=== PATIENT | male | born 1970 | race Two or more races ===

== ENCOUNTER 2022-12-31 17:59 | Inpatient (IN) | payer MEDICAID, OTHER ==
[~2022-12-31] VITALS: Ht 167.6 cm; Wt 120.6 kg
[2022-12-31 18:46] LABS: Basophils # (auto) 0.1 10 ^3/uL (0-0.2); Basophils % (auto) 0.9 % (0.0-2.0); Eosinophils # (auto) 0.1 10 ^3/uL (0-0.8); Monocytes # (auto) 1.2 10 ^3/uL (0-1.3); White Blood Cell 11.6 10^3/uL (4.4-10.8)
[2022-12-31 18:48] LABS: Eosinophils % (auto) 0.9 % (0.0-7.0); Hematocrit 41.3 % (41.0-53.0); Hemoglobin 14.2 g/dL (13.5-17.5); Lymphocytes # (auto) 1.1 10 ^3/uL (0.4-5.4); Lymphocytes % (auto) 9.6 % (10.0-50.0); Mean Corpuscular Hemoglobin 35.2 pg (28.0-32.0); Mean Corpuscular Hgb Conc. 34.4 g/dL (32.0-36.0); Mean Corpuscular Volume 102.5 fL (80.0-100.0); Monocytes % (auto) 10.2 % (0.0-12.0); Neutrophils # (auto) 9.1 10 ^3/uL (1.6-8.6); Neutrophils % (auto) 78.4 % (37.0-80.0); Nucleated Red Blood Cells % 0.1 %; Red Blood Cells 4.03 10^6/uL (4.5-5.90); Red Cell Distribution Width 16.8 % (11.8-14.3)
[2022-12-31 19:01] LABS: Albumin 2.2 g/dL (3.4-5.0); Calcium 7.8 mg/dL (8.5-10.1); Potassium 4.2 mmol/L (3.5-5.1)
[2022-12-31 19:05] LABS: BUN/Creatinine Ratio 19.3 (10.0-20.0); Bilirubin, Total 7.6 mg/dL (0.2-1.0); Total Protein 6.6 g/dL (6.4-8.2)
[2022-12-31 19:21] LABS: INR 1.83 (0.9-1.15); Partial Thromboplastin Time 36.2 SEC (24.5-34.5)
[2022-12-31] MEDS ORDERED: KETOROLAC TROMETH 60MG/2ML VIAL IM ONE (19:45)
[2022-12-31] MEDS ORDERED: HYDROcodone-ACET 5/325MG TAB PO ONE (19:45)
[2022-12-31] MEDS ORDERED: LACTULOSE 20Gm/30ML SOLN PO ONE (23:00)
[2022-12-31] MEDS: CALCIUM GLUC 1,000mg/50ml-NS 50 ML IV SCH ×2 (23:00→23:30)
[2022-12-31] MEDS: SODIUM CHLORIDE 0.9% 1,000 ML IV ONE (23:00)
[2023-01-01] MEDS ORDERED: HYDROcodone-ACET 5/325MG TAB PO ONE (07:00)
[2023-01-01] MEDS ORDERED: KETOROLAC TROMETH 60MG/2ML VIAL IM ONE (07:00)
[2023-01-01] MEDS ORDERED: LACTULOSE 20Gm/30ML SOLN PO ONE (07:00)
[2023-01-01] MEDS ORDERED: SODIUM CHLORIDE 0.9% 1,000 ML IV ONE (07:00)
[2023-01-01] MEDS: CALCIUM GLUC 1,000mg/50ml-NS 50 ML IV SCH ×2 (07:08→07:46)
[2023-01-01] MEDS ORDERED: MORPHINE SULFATE INJ 2 MG/ml SYRG IV PRN (12:00)
[2023-01-01] MEDS ORDERED: NITROGLYCERIN 0.4 MG SL TAB SL PRN (12:00)
[2023-01-01] MEDS ORDERED: LORazepam 2MG/ML-1ML VIAL IV PRN (13:00)
[2023-01-01] MEDS: FOLIC ACID 1 MG, MULTIPLE VITAMIN 10 ML, MAGNESIUM SULF SDV 50% 8 MEQ, THIAMINE INJ 100... INJ SCH ×5 (13:55)
[2023-01-01] MEDS: LACTATED RINGER'S 1,000 ML IV SCH ×2 (14:30→21:15)
[2023-01-01] MEDS ORDERED: HYDROmorphone HCL 2 MG/ML VL/or syr IV PRN (16:15)
[2023-01-01] MEDS ORDERED: ONDANSETRON HCL 4 MG/2 ML VIAL IV PRN (16:15)
[2023-01-01] MEDS: metroNIDAZOLE 500MG/100ML 100 ML IV SCH (22:46)
[2023-01-02] MEDS: LACTATED RINGER'S 1,000 ML IV SCH ×2 (03:50→10:40)
[2023-01-02] MEDS: metroNIDAZOLE 500MG/100ML 100 ML IV SCH ×3 (05:37→22:42)
[2023-01-02 05:50] LABS: Eosinophils # (auto) 0.2 10 ^3/uL (0-0.8); Hemoglobin 14.3 g/dL (13.5-17.5); Lymphocytes # (auto) 1.3 10 ^3/uL (0.4-5.4); Mean Corpuscular Hemoglobin 35.5 pg (28.0-32.0); Nucleated Red Blood Cells % 0.1 %; Red Blood Cells 4.03 10^6/uL (4.5-5.90)
[2023-01-02 05:52] LABS: Basophils # (auto) 0.1 10 ^3/uL (0-0.2); Basophils % (auto) 0.7 % (0.0-2.0); Eosinophils % (auto) 1.5 % (0.0-7.0); Lymphocytes % (auto) 11.8 % (10.0-50.0); Mean Corpuscular Volume 104.2 fL (80.0-100.0); Neutrophils # (auto) 8.6 10 ^3/uL (1.6-8.6); Red Cell Distribution Width 16.3 % (11.8-14.3); White Blood Cell 11.2 10^3/uL (4.4-10.8)
[2023-01-02 06:04] LABS: Calcium 8.2 mg/dL (8.5-10.1); Potassium 4.8 mmol/L (3.5-5.1)
[2023-01-02 06:08] LABS: BUN/Creatinine Ratio 27.8 (10.0-20.0); Total Protein 6.3 g/dL (6.4-8.2)
[2023-01-02] MEDS: cefTRIAXone 1GM/50ML D5W 50 ML IV SCH (09:51)
[2023-01-02] MEDS: SPIRONOLACTONE 25 MG TAB PO SCH (09:56)
[2023-01-02] MEDS: FUROSEMIDE 20 MG/2 ML VIAL IV SCH (09:57)
[2023-01-02] MEDS: LACTULOSE 20Gm/30ML SOLN PO SCH (09:57)
[2023-01-02] MEDS: PANTOPRAZOLE 40 MG/10 ML VIAL INJ IV SCH (09:57)
[2023-01-02] MEDS: FOLIC ACID 1 MG, MULTIPLE VITAMIN 10 ML, MAGNESIUM SULF SDV 50% 8 MEQ, THIAMINE INJ 100... INJ SCH ×5 (12:52)
[2023-01-02] MEDS ORDERED: LACTATED RINGER'S 1,000 ML IV SCH (13:45)
[2023-01-02 17:00] VITALS: BP 121/64
[2023-01-02 17:12] VITALS: BP 121/64
[2023-01-02 20:00] VITALS: BP 128/70
[2023-01-02 22:00] VITALS: BP 128/70
[2023-01-03 05:07] VITALS: BP 119/67
[2023-01-03 06:17] LABS: Potassium 4.4 mmol/L (3.5-5.1)
[2023-01-03 06:23] LABS: Hematocrit 39.1 % (41.0-53.0); Hemoglobin 13.5 g/dL (13.5-17.5); Mean Corpuscular Hgb Conc. 34.6 g/dL (32.0-36.0)
[2023-01-03 06:26] LABS: Basophils # (auto) 0.1 10 ^3/uL (0-0.2); Basophils % (auto) 0.7 % (0.0-2.0); Eosinophils # (auto) 0.1 10 ^3/uL (0-0.8); Eosinophils % (auto) 1.5 % (0.0-7.0); Lymphocytes # (auto) 1.1 10 ^3/uL (0.4-5.4); Lymphocytes % (auto) 12.7 % (10.0-50.0); Mean Corpuscular Volume 103.9 fL (80.0-100.0); Monocytes # (auto) 0.9 10 ^3/uL (0-1.3); Monocytes % (auto) 9.8 % (0.0-12.0); Neutrophils # (auto) 6.8 10 ^3/uL (1.6-8.6); Neutrophils % (auto) 75.3 % (37.0-80.0); Red Blood Cells 3.76 10^6/uL (4.5-5.90); Red Cell Distribution Width 16.5 % (11.8-14.3); White Blood Cell 9.1 10^3/uL (4.4-10.8)
[2023-01-03] MEDS: metroNIDAZOLE 500MG/100ML 100 ML IV SCH ×2 (06:26→14:25)
[2023-01-03 06:32] LABS: Albumin 1.8 g/dL (3.4-5.0); BUN/Creatinine Ratio 33.3 (10.0-20.0); Bilirubin, Total 7.8 mg/dL (0.2-1.0); Total Protein 5.7 g/dL (6.4-8.2)
[2023-01-03 08:00] VITALS: BP 124/61
[2023-01-03] MEDS: PANTOPRAZOLE 40 MG/10 ML VIAL INJ IV SCH (08:36)
[2023-01-03] MEDS: LACTULOSE 20Gm/30ML SOLN PO SCH (08:37)
[2023-01-03] MEDS: FUROSEMIDE 20 MG/2 ML VIAL IV SCH (08:37)
[2023-01-03] MEDS: SPIRONOLACTONE 25 MG TAB PO SCH (08:37)
[2023-01-03] MEDS: cefTRIAXone 1GM/50ML D5W 50 ML IV SCH (08:37)
[2023-01-03 09:00] VITALS: BP 124/61
[2023-01-03] MEDS ORDERED: methylPREDNISolone SOD SUCC 40 MG/ML VL IV SCH (10:00)
[2023-01-03 13:00] VITALS: BP 139/73
[2023-01-03 13:00] LABS: Hepatitis A Ab IgM Negative
[2023-01-03 13:01] LABS: Hepatitis B Core IgM Negative; Hepatitis C Antibody Negative (Negative)
[2023-01-03 13:08] LABS: Hepatitis C Antibody Negative (Negative)
== END 2023-01-03 15:50 | disposition home or self-care (01) | DRG 282 ==
LOC: ER 17:59 → TELE 01-01 11:57 → TELE-EAST 01-02 17:12
PROVIDERS: ADMIT Nurse Practitioner Acute Care; ATTEND Nurse Practitioner Acute Care
PROC: 0W9G3ZZ Drainage of Peritoneal Cavity, Percutaneous Approach (ICD-10-PCS; principal; 2023-01-02)
DX: K85.20 Alcohol induced acute pancreatitis without necrosis or infection (principal); E43 Unspecified severe protein-calorie malnutrition; K70.31 Alcoholic cirrhosis of liver with ascites; D69.6 Thrombocytopenia, unspecified; E83.51 Hypocalcemia; K76.6 Portal hypertension; D63.8 Anemia in other chronic diseases classified elsewhere; R74.01 Elevation of levels of liver transaminase levels; F10.20 Alcohol dependence, uncomplicated; N39.0 Urinary tract infection, site not specified; E87.1 Hypo-osmolality and hyponatremia; E66.01 Morbid (severe) obesity due to excess calories; Z68.41 Body mass index [BMI] 40.0-44.9, adult; R65.10 Systemic inflammatory response syndrome (SIRS) of non-infectious origin without acute organ dysfunction
CPT/HCPCS: 36415; 71045; 74176; 76705; 76942; 80053; 80061; 80074; 82105; 82140; 83690; 83880; 84484; 85025; 85610; 85730; 86803; 87040; 87205; 87340; 93005; C9113; G0378; J0696; J1885; J3490

== ENCOUNTER 2023-01-29 16:26 | Inpatient (IN) | payer MEDICAID ==
[~2023-01-29] VITALS: Ht 167.6 cm; Wt 110.0 kg
[2023-01-29 18:02] VITALS: PULSE 94; RESP 31; O2SAT 94
[2023-01-29 18:05] LABS: Red Cell Distribution Width 15.5 % (11.8-14.3)
[2023-01-29 18:06] LABS: Hematocrit 43.5 % (41.0-53.0); Hemoglobin 14.8 g/dL (13.5-17.5); Mean Corpuscular Hemoglobin 36.4 pg (28.0-32.0); Mean Corpuscular Volume 106.8 fL (80.0-100.0); Red Blood Cells 4.07 10^6/uL (4.5-5.90); White Blood Cell 15.2 10^3/uL (4.4-10.8)
[2023-01-29 18:20] LABS: Basophils % (manual) 0 (0.0-2.0); Blast Cells 0; Eosinophils % (manual) 0 (0-7); Metamyelocytes % 0; Myelocytes % 0; Promyelocytes % 0; Reactive Lymphocytes 0
[2023-01-29 18:39] LABS: Albumin 1.9 g/dL (3.4-5.0); Calcium 8.2 mg/dL (8.5-10.1)
[2023-01-29 18:43] LABS: BUN/Creatinine Ratio 20.9 (10.0-20.0); Bilirubin, Total 9.9 mg/dL (0.2-1.0); Total Protein 6.2 g/dL (6.4-8.2)
[2023-01-29 19:20] LABS: Potassium 5.8 mmol/L (3.5-5.1)
[2023-01-29 20:15] VITALS: PULSE 98; RESP 36; O2SAT 92
[2023-01-29 20:56] LABS: Band Neutrophils % (manual) 15; Lymphocytes % (manual) 1 (10.0-50.0); Monocytes % (manual) 4 (0-12)
[2023-01-29 20:57] LABS: Platelet Estimate Adequate
[2023-01-29 20:58] LABS: Anisocytosis Slight
[2023-01-29] MEDS ORDERED: ALBUMIN 25% 100 ML IV ONE (21:30)
[2023-01-29] MEDS ORDERED: SODIUM ZIRCONIUM CYCL 10 GM PAK PO ONE (21:30)
[2023-01-29] MEDS ORDERED: FUROSEMIDE 40 MG/4 ML VIAL IV ONE (21:30)
[2023-01-29] MEDS ORDERED: ONDANSETRON HCL 4 MG/2 ML VIAL IV PRN (21:30)
[2023-01-29] MEDS ORDERED: MORPHINE SULFATE INJ 2 MG/ml SYRG IV PRN (21:30)
[2023-01-29] MEDS ORDERED: NITROGLYCERIN 0.4 MG SL TAB SL PRN (21:30)
[2023-01-29] MEDS: LACTULOSE 20Gm/30ML SOLN PO SCH (22:39)
[2023-01-29 22:40] LABS: Macrocytosis Moderate
[2023-01-30] VITALS (84 sets, daily range): BP systolic 37–164; BP diastolic 12–130; PULSE 81–109; RESP 11–32; TEMP 95.2–99.1; O2SAT 94–100
[2023-01-30 01:25] LABS: INR 2.54 (0.9-1.15); Prothrombin Time 25.1 sec (9.3-11.8)
[2023-01-30 05:11] LABS: Eosinophils # (auto) 0 10 ^3/uL (0-0.8); Hemoglobin 13.1 g/dL (13.5-17.5); Nucleated Red Blood Cells % 0.1 %
[2023-01-30 05:18] LABS: INR 2.78 (0.9-1.15); Partial Thromboplastin Time 55.3 SEC (24.5-34.5); Prothrombin Time 27.3 sec (9.3-11.8)
[2023-01-30 05:22] LABS: Basophils # (auto) 0.1 10 ^3/uL (0-0.2); Basophils % (auto) 0.4 % (0.0-2.0); Lymphocytes # (auto) 0.8 10 ^3/uL (0.4-5.4); Lymphocytes % (auto) 5.4 % (10.0-50.0); Mean Corpuscular Hemoglobin 36.8 pg (28.0-32.0); Mean Corpuscular Hgb Conc. 33.6 g/dL (32.0-36.0); Mean Corpuscular Volume 109.8 fL (80.0-100.0); Monocytes # (auto) 0.6 10 ^3/uL (0-1.3); Monocytes % (auto) 4.1 % (0.0-12.0); Neutrophils # (auto) 12.8 10 ^3/uL (1.6-8.6); Neutrophils % (auto) 90.1 % (37.0-80.0); Red Blood Cells 3.55 10^6/uL (4.5-5.90); Red Cell Distribution Width 15.8 % (11.8-14.3); White Blood Cell 14.2 10^3/uL (4.4-10.8)
[2023-01-30 05:23] LABS: Albumin 2.1 g/dL (3.4-5.0); Calcium 8.8 mg/dL (8.5-10.1)
[2023-01-30 05:27] LABS: BUN/Creatinine Ratio 16.5 (10.0-20.0); Bilirubin, Total 10.4 mg/dL (0.2-1.0); Total Protein 5.9 g/dL (6.4-8.2)
[2023-01-30 05:50] LABS: Potassium 6.7 mmol/L (3.5-5.1)
[2023-01-30] MEDS ORDERED: DEXTROSE 50% SYRINGE 50 ML IV ONE (05:55)
[2023-01-30] MEDS ORDERED: SUCCINYLCHOLINE CHLORIDE 20 MG/ML 10ML VIAL IV ONE (05:56)
[2023-01-30] MEDS ORDERED: MIDAZOLAM DRIP 50 mg/50mL 50 ML IV ONE (06:10)
[2023-01-30 06:42] LABS: Large Platelets FEW; Macrocytosis Moderate; Platelet Estimate Adequate
[2023-01-30] MEDS ORDERED: PHENYLEPHRINE IV 250 ML IV SCH (07:15)
[2023-01-30 07:51] LABS: Hematocrit 43.5 % (41.0-53.0); Hemoglobin 12.8 g/dL (13.5-17.5); Mean Corpuscular Hemoglobin 36.5 pg (28.0-32.0); Mean Corpuscular Hgb Conc. 29.4 g/dL (32.0-36.0); Red Blood Cells 3.51 10^6/uL (4.5-5.90); Red Cell Distribution Width 17.3 % (11.8-14.3); White Blood Cell 15.2 10^3/uL (4.4-10.8)
[2023-01-30 07:59] LABS: Basophils % (manual) 0 (0.0-2.0); Blast Cells 0; Eosinophils % (manual) 0 (0-7); Metamyelocytes % 0; Myelocytes % 0; Promyelocytes % 0; Reactive Lymphocytes 0
[2023-01-30] MEDS ORDERED: SODIUM ZIRCONIUM CYCL 10 GM PAK PO ONE (08:15)
[2023-01-30] MEDS: VASOPRESSIN 20 UNITS in SODIUM CHL 0.9% 99 ML IV SCH ×2 (08:15→16:42)
[2023-01-30] MEDS ORDERED: CALCIUM GLUC 1,000mg/50ml-NS 50 ML IV ONE ×2 (08:15→20:00)
[2023-01-30] MEDS ORDERED: ALBUTEROL SULF 2.5 MG/0.5ML(0.5%) NEB SOLN NEB ONE (08:15)
[2023-01-30] MEDS ORDERED: NOREPINEPHRINE 8 MG/250ML KIT 250 ML IV SCH (08:15)
[2023-01-30] MEDS ORDERED: NOREPINEPHRINE 8 MG/250ML KIT 250 ML IV ONE (08:16)
[2023-01-30 08:31] LABS: Albumin 1.9 g/dL (3.4-5.0); BUN/Creatinine Ratio 15.7 (10.0-20.0); Calcium 9.5 mg/dL (8.5-10.1); Total Protein 5.7 g/dL (6.4-8.2)
[2023-01-30] MEDS ORDERED: VASOPRESSIN 20 UNIT/ML ONE (08:34)
[2023-01-30 08:39] LABS: Potassium 7.1 mmol/L (3.5-5.1)
[2023-01-30 08:57] LABS: Base Excess -22.8 mmol/L (-2.0-2.0)
[2023-01-30] MEDS ORDERED: SODIUM BICARBONATE 8.4 % INJ 50ML VIAL IV ONE ×2 (09:04→09:15)
[2023-01-30] MEDS: SODIUM BICARBONATE 50ML VIAL 150 ML in D5W 5% 1,000 ML IV SCH ×2 (09:15→20:59)
[2023-01-30] MEDS ORDERED: SODIUM CHL 0.9% 1000 ML BAG XX ONE (09:30)
[2023-01-30] MEDS ORDERED: EPINEPHrine HCL 250 ML IV SCH (09:45)
[2023-01-30] MEDS ORDERED: InsuLIN REG 1unit/0.01ml Soln (100units/ml) IV ONE ×2 (09:45→20:00)
[2023-01-30] MEDS ORDERED: DEXTROSE (50%) 50ML SYRG IV ONE ×2 (09:45→20:00)
[2023-01-30] MEDS ORDERED: EPINEPHrine HCL 250 ML IV ONE (09:54)
[2023-01-30] MEDS: LACTULOSE 20Gm/30ML SOLN PO SCH (10:00)
[2023-01-30] MEDS ORDERED: PANTOPRAZOLE 40 MG TAB PO SCH (10:00)
[2023-01-30 10:30] LABS: % Iron Saturation 108.9 % (20-55)
[2023-01-30] MEDS ORDERED: ALBUMIN 25% 100 ML IV PRN ×2 (10:45→19:45)
[2023-01-30 11:04] LABS: Band Neutrophils % (manual) 1; Lymphocytes % (manual) 16 (10.0-50.0); Monocytes % (manual) 5 (0-12); Platelet Estimate Adequate
[2023-01-30] MEDS ORDERED: MEROPENEM 500MG IVPB 50 ML IV SCH (11:15)
[2023-01-30] MEDS ORDERED: EPINEPHrine HCL INJECTION 16 MG in D5W 5% 234 ML IV SCH (11:30)
[2023-01-30] MEDS ORDERED: NOREPINEPHRINE BITARTRATE 32 MG in SODIUM CHL 0.9% 218 ML IV SCH (11:30)
[2023-01-30] MEDS: MIDAZOLAM DRIP 50 mg/50mL 50 ML IV SCH ×2 (12:00→16:41)
[2023-01-30] MEDS: PHENYLEPHRINE INJ 80 MG in SODIUM CHL 0.9% 242 ML IV SCH ×2 (14:14→21:00)
[2023-01-30 15:22] LABS: Red Blood Cells 2.99 10^6/uL (4.5-5.90)
[2023-01-30 15:24] LABS: Hematocrit 33.5 % (41.0-53.0); Hemoglobin 10.9 g/dL (13.5-17.5); Mean Corpuscular Hemoglobin 36.5 pg (28.0-32.0); Mean Corpuscular Hgb Conc. 32.5 g/dL (32.0-36.0); Mean Corpuscular Volume 112.3 fL (80.0-100.0); White Blood Cell 14.3 10^3/uL (4.4-10.8)
[2023-01-30 15:41] LABS: Albumin 2.8 g/dL (3.4-5.0); Calcium 8.3 mg/dL (8.5-10.1); Potassium 5.5 mmol/L (3.5-5.1)
[2023-01-30 15:44] LABS: BUN/Creatinine Ratio 13.8 (10.0-20.0); Bilirubin, Total 9.6 mg/dL (0.2-1.0); Total Protein 5.7 g/dL (6.4-8.2)
[2023-01-30 15:51] LABS: Basophils % (manual) 0 (0.0-2.0); Blast Cells 0; Eosinophils % (manual) 0 (0-7); Metamyelocytes % 0; Myelocytes % 0; Reactive Lymphocytes 0
[2023-01-30 17:35] LABS: Band Neutrophils % (manual) 50; Lymphocytes % (manual) 10 (10.0-50.0); Monocytes % (manual) 5 (0-12); Promyelocytes % 0
[2023-01-30 17:36] LABS: Platelet Estimate Decreased
[2023-01-30 17:37] LABS: Macrocytosis Marked
[2023-01-30 17:38] LABS: Anisocytosis Slight
[2023-01-30 19:01] LABS: Calcium 8.4 mg/dL (8.5-10.1); Potassium 5.5 mmol/L (3.5-5.1)
[2023-01-30 19:09] LABS: BUN/Creatinine Ratio 12.8 (10.0-20.0); Bilirubin, Total 9.8 mg/dL (0.2-1.0); Total Protein 5.6 g/dL (6.4-8.2)
[2023-01-30 19:11] LABS: Hematocrit 32.1 % (41.0-53.0); Hemoglobin 10.1 g/dL (13.5-17.5); Mean Corpuscular Hemoglobin 36.1 pg (28.0-32.0); Mean Corpuscular Hgb Conc. 31.4 g/dL (32.0-36.0); Mean Corpuscular Volume 114.9 fL (80.0-100.0); Red Blood Cells 2.79 10^6/uL (4.5-5.90); Red Cell Distribution Width 17.3 % (11.8-14.3); White Blood Cell 14.2 10^3/uL (4.4-10.8)
[2023-01-30 19:15] LABS: Basophils % (manual) 0 (0.0-2.0); Blast Cells 0; Eosinophils % (manual) 0 (0-7); Metamyelocytes % 0; Myelocytes % 0; Promyelocytes % 0; Reactive Lymphocytes 0
[2023-01-30 19:49] LABS: Band Neutrophils % (manual) 15; Lymphocytes % (manual) 10 (10.0-50.0); Monocytes % (manual) 8 (0-12)
[2023-01-30 19:53] LABS: Large Platelets FEW; Macrocytosis Marked; Platelet Estimate Decreased
[2023-01-30 19:54] LABS: Anisocytosis Slight
[2023-01-30] MEDS ORDERED: LINEZOLID 600MG/300ML 300 ML IV SCH (22:00)
[2023-01-30] MEDS ORDERED: DEXTROSE (50%) 50ML SYRG IV PRN (22:45)
[2023-01-31] VITALS (16 sets, daily range): BP systolic 55–153; BP diastolic 20–65; PULSE 101–129; RESP 15–28; TEMP 99.1–99.5; O2SAT 92–95
[2023-01-31] MEDS ORDERED: ACCU-CHEK COMFORT CURVE STRIP VI SCH
[2023-01-31 00:05] LABS: Base Excess -18.2 mmol/L (-2.0-2.0)
[2023-01-31] MEDS ORDERED: DEXTROSE 10% 1,000 ML IV ONE (00:43)
[2023-01-31] MEDS ORDERED: SODIUM BICARBONATE 8.4 % INJ 50ML VIAL IV ONE ×3 (00:45→02:45)
[2023-01-31] MEDS ORDERED: DEXTROSE 10% 1,000 ML IV SCH (00:45)
[2023-01-31] MEDS ORDERED: SODIUM BICARBONATE 50ML VIAL 150 ML in D5W 5% 1,000 ML IV SCH ×2 (00:45→02:45)
[2023-01-31] MEDS ORDERED: DOPamine 1600MCG/ML D5W 250 ML IV ONE (01:41)
[2023-01-31] MEDS ORDERED: DOPamine 1600MCG/ML D5W 250 ML IV SCH (01:45)
[2023-01-31 02:49] LABS: BUN/Creatinine Ratio 11.3 (10.0-20.0); Calcium 8.7 mg/dL (8.5-10.1)
[2023-01-31] MEDS: VASOPRESSIN 20 UNITS in SODIUM CHL 0.9% 99 ML IV SCH (02:54)
[2023-01-31 03:11] LABS: Base Excess -16.4 mmol/L (-2.0-2.0)
[2023-01-31 03:21] LABS: Hematocrit 24.1 % (41.0-53.0); Hemoglobin 7.9 g/dL (13.5-17.5); Mean Corpuscular Hemoglobin 37.8 pg (28.0-32.0); Mean Corpuscular Hgb Conc. 32.8 g/dL (32.0-36.0); Mean Corpuscular Volume 115.3 fL (80.0-100.0); Red Blood Cells 2.09 10^6/uL (4.5-5.90); Red Cell Distribution Width 16.7 % (11.8-14.3); White Blood Cell 10.2 10^3/uL (4.4-10.8)
[2023-01-31 03:23] LABS: Basophils % (manual) 0 (0.0-2.0); Blast Cells 0; Eosinophils % (manual) 0 (0-7); Promyelocytes % 0; Reactive Lymphocytes 0
[2023-01-31 03:26] LABS: Potassium 7.8 mmol/L (3.5-5.1)
[2023-01-31] MEDS ORDERED: SODIUM BICARBONATE 8.4% INJ 50ML SYRINGE IV ONE (03:28)
[2023-01-31] MEDS ORDERED: CALCIUM CHLOR(10%) 100MG/ML 10ML SYRINGE IV ONE (03:28)
[2023-01-31] MEDS ORDERED: EPINEPHrine HCL 1 MG/10 ML SYRG IV ONE (03:28)
[2023-01-31 04:29] LABS: Band Neutrophils % (manual) 12; Lymphocytes % (manual) 10 (10.0-50.0); Metamyelocytes % 1; Monocytes % (manual) 6 (0-12); Myelocytes % 4
[2023-01-31 04:30] LABS: Anisocytosis Slight; Macrocytosis Marked; Platelet Estimate Decreased
[2023-01-31] MEDS ORDERED: SODIUM CHL 0.9% 1000 ML BAG XX ONE (07:00)
[2023-01-31 12:38] LABS: Hepatitis A Ab IgM Negative; Hepatitis B Core IgM Negative; Hepatitis B Surface Antigen Negative (Negative); Hepatitis C Antibody Negative (Negative)
[2023-01-31] MEDS ORDERED: EPOETIN ALFA-EPBX 10,000 UNIT/1ML VIAL SC ONE (21:00)
== END 2023-01-31 03:29 | DRG 720 ==
LOC: ER 16:26 → TELE 21:39 → ICU WEST 01-30 06:50
PROVIDERS: ADMIT Nurse Practitioner Acute Care; ATTEND Nurse Practitioner Acute Care
PROC: 5A1935Z Respiratory Ventilation, Less than 24 Consecutive Hours (ICD-10-PCS; principal; 2023-01-30)
PROC: 5A12012 Performance of Cardiac Output, Single, Manual (ICD-10-PCS; 2023-01-30)
PROC: 0BH17EZ Insertion of Endotracheal Airway into Trachea, Via Natural or Artificial Opening (ICD-10-PCS; 2023-01-30)
PROC: 30233K1 Transfusion of Nonautologous Frozen Plasma into Peripheral Vein, Percutaneous Approach (ICD-10-PCS; 2023-01-30)
PROC: 04HY32Z Insertion of Monitoring Device into Lower Artery, Percutaneous Approach (ICD-10-PCS; 2023-01-30)
PROC: 02HV33Z Insertion of Infusion Device into Superior Vena Cava, Percutaneous Approach (ICD-10-PCS; 2023-01-30)
PROC: B548ZZA Ultrasonography of Superior Vena Cava, Guidance (ICD-10-PCS; 2023-01-30)
PROC: 5A1D70Z Performance of Urinary Filtration, Intermittent, Less than 6 Hours Per Day (ICD-10-PCS; 2023-01-30)
PROC: 0D9670Z Drainage of Stomach with Drainage Device, Via Natural or Artificial Opening (ICD-10-PCS; 2023-01-30)
PROC: 5A12012 Performance of Cardiac Output, Single, Manual (ICD-10-PCS; 2023-01-31)
DX: A41.9 Sepsis, unspecified organism (principal); K76.7 Hepatorenal syndrome; J96.00 Acute respiratory failure, unspecified whether with hypoxia or hypercapnia; I46.9 Cardiac arrest, cause unspecified; K25.5 Chronic or unspecified gastric ulcer with perforation; E43 Unspecified severe protein-calorie malnutrition; N17.0 Acute kidney failure with tubular necrosis; K70.40 Alcoholic hepatic failure without coma; R65.21 Severe sepsis with septic shock; Z68.39 Body mass index [BMI] 39.0-39.9, adult; E66.9 Obesity, unspecified; E87.5 Hyperkalemia; R60.1 Generalized edema; K70.31 Alcoholic cirrhosis of liver with ascites
CPT/HCPCS: 31500; 36415; 36600; 71045; 76700; 76705; 76775; 80048; 80053; 80074; 82140; 82728; 82805; 82962; 83540; 83550; 83735; 85007; 85025; 85027; 85610; 85730; 86850; 86900; 86901; 87070; 87077; 87081; 87186; 87205; 90935; 94003; 99152; 99153; G0378; J0171; J0330; J1815; J2185; J2250; J2405; J7060; P9047